=== PATIENT | female | born 1935 | race Caucasian/White ===

== ENCOUNTER → 2024-07-15 08:56 | Outpatient (REF) | payer MEDICARE, SELFPAY | LOC: HWRAD 08:56 | PROVIDERS: ATTENDING PHYSICIAN Internal Medicine; FAMILY PHYSICIAN Family Medicine; REFERRING PHYSICIAN Internal Medicine | DX: Z12.31 Encounter for screening mammogram for malignant neoplasm of breast (principal); M81.0 Age-related osteoporosis without current pathological fracture | CPT/HCPCS: 77063; 77067; 77080 ==

== ENCOUNTER → 2024-07-28 09:58 | Outpatient (REF) | payer MEDICARE, SELFPAY | LOC: HWRCS 09:58 | PROVIDERS: ATTENDING PHYSICIAN Internal Medicine; FAMILY PHYSICIAN Family Medicine | DX: I25.10 Atherosclerotic heart disease of native coronary artery without angina pectoris (principal); I10 Essential (primary) hypertension; I48.0 Paroxysmal atrial fibrillation; I25.5 Ischemic cardiomyopathy; E78.5 Hyperlipidemia, unspecified | CPT/HCPCS: 93306 ==

== ENCOUNTER → 2024-09-16 10:57 | Outpatient (REF) | payer MEDICARE, SELFPAY | LOC: RAD 10:57 | PROVIDERS: ATTENDING PHYSICIAN Internal Medicine; FAMILY PHYSICIAN Family Medicine | DX: M54.9 Dorsalgia, unspecified (principal); R29.890 Loss of height | CPT/HCPCS: 72052; 72072; 72100 ==